=== PATIENT | male | born 1935 | race Caucasian/White ===

== ENCOUNTER → 2016-10-19 | Outpatient (CLI) | payer BC ==
[~2016-10-19] MED LIST: ASPCH81; ASPI81TA28 PO; ATOR10TA88 PO; CEPH500C PO; CRSUNK; CZRUNK; GLC500 PO; INSDGI SC; INSDGIPEN SC; LOSA1TAB PO; MULT-897 PO; TRIATAB3 PO
[2016-10-19 12:29] LABS: MEAN CORPUSCULAR HGB CONC 31.6 g/dl (32-36)
[2016-10-19 12:30] LABS: URINE APPEARANCE CLEAR (CLEAR); URINE BILIRUBIN NEG (NEG); URINE COLOR YELLOW; URINE NITRITE NEG (NEG); URINE SPECIFIC GRAVITY 1.018 (1.000-1.030); UROBILINOGEN NEG (NEG)
[2016-10-19 12:35] LABS: MANUAL MICROSCOPIC REQUIRED? NO; REVIEW REQ? NO
[2016-10-19 12:37] LABS: HEMATOCRIT 41.1 % (42-52); MEAN CELL VOLUME 92.6 fL (80-100); MEAN CORPUSCULAR HEMOGLOBIN 29.3 pg (25-34); RED BLOOD COUNT 4.44 M/uL (4.7-6.1); WHITE BLOOD COUNT 9.91 K/uL (4.8-10.8)
[2016-10-19 12:53] LABS: ESTIMATED AVERAGE GLUCOSE 140 mg/dl; HA1C FLAG Normal (Normal)
[2016-10-19 13:08] LABS: MEAN PLATELET VOLUME 13.5 fL (7.4-10.4); PLATELET COUNT 148 K/uL (130-400); PLT ESTIMATE DECREASED
[2016-10-19 13:22] LABS: ALT/SGPT 30 U/L (12-78); AST/SGOT 14 U/L (15-37); BLOOD UREA NITROGEN 29 mg/dl (7-18); CALCIUM 8.7 mg/dl (8.5-10.1); CARBON DIOXIDE 28 mmol/L (21-32); CHLORIDE 106 mmol/L (98-107); GLUCOSE 92 mg/dl (70-99); POTASSIUM 4.2 mmol/L (3.5-5.1); SODIUM 140 mmol/L (136-145)
[2016-10-19 13:24] LABS: CHOLESTEROL 119 mg/dl (0-200); CHOLESTEROL/HDL RATIO 3.4; HDL CHOLESTEROL 35 mg/dl; LDL CHOLESTEROL CALCULATED 45 mg/dl; PHOSPHORUS 2.8 mg/dl (2.5-4.9); TRIGLYCERIDES 196 mg/dl (0-150); VERY LOW DENSITY LIPOPROT CALC 39 mg/dl
[2016-10-19 14:04] LABS: URINE PROTIEN/CREAT RATIO 0.2 (0-0.2); URINE TOTAL PROTEIN 25.9 mg/dl (0-11.9)
== END | disposition home or self-care (01) ==
LOC: C.LABBFT 07:45
PROVIDERS: ATTEND Internal Medicine
DX: E78.5 Hyperlipidemia, unspecified (principal); I12.9 Hypertensive chronic kidney disease with stage 1 through stage 4 chronic kidney disease, or unspecified chronic kidney disease; N18.3 Chronic kidney disease, stage 3 (moderate); E11.22 Type 2 diabetes mellitus with diabetic chronic kidney disease; E55.9 Vitamin D deficiency, unspecified; R60.9 Edema, unspecified

== ENCOUNTER 2016-11-19 00:35 | Emergency (ER) | payer BC ==
[~2016-11-19] VITALS: Ht 175.3 cm; Wt 82.2 kg
[~2016-11-19 00:35] MED LIST changes: -ASPI81TA28 PO; -ATOR10TA88 PO; -INSDGIPEN SC; -LOSA1TAB PO; -MULT-897 PO; -TRIATAB3 PO
[2016-11-19 00:37] VITALS: TEMP 36.8; Ht 175.3 cm; Wt 82.2 kg
[2016-11-19] MEDS ORDERED: GELATIN SPONGE 12-7MM ONE (01:07)
--- NOTE | 2016-11-19 01:42 | EMERGENCY ROOM VISIT NOTE ---
History First contact with patient: 00:43 Chief Complaint: BLEEDING Stated Complaint: BLEEDING Nursing Triage Summary: Pt had biopsy to top of head today. Site started bleeding at 9pm tonight and pt unable to get it to stop. Pt takes ASA 81 mg daily. History of Present Illness The patient is a 81 year old male who presents to the Emergency Room with complaints of bleeding from a wound to the top of his head. The patient saw his mat worker today due to a lesion on the top of his head which has been present for several weeks. He states that they biopsied the lesion and applied Vaseline and a bandage. There was no bleeding at that time. The patient states that this evening, he noticed blood running down the back of his head and noted that the biopsy site was bleeding. He called the on-call provider from the dermatology office and they told him to apply Vaseline but he states this did not work. He takes a baby aspirin daily but denies any other blood thinners. Review of Systems A complete 10 point review of systems was reviewed with the patient with pertinent positives and negatives as per history of present illness. All else were negative. Social History Smoking Status: Current Some Day Smoker Current/Historical Medications Scheduled Aspirin (Aspirin Ec), 81 MG PO DAILY Atorvastatin (Lipitor), 10 MG PO DAILY Insulin Glargine (Lantus Solostar), 1-10 UNITS SC QPM Losartan Potassium (Cozaar), 1 TAB PO DAILY Multiple Vitamin (One Daily), 1 TAB PO DAILY Triamterene/Hctz (Triamterene/Hctz 37.5-25MG), 1 TAB PO DAILY Physical Exam Vital Signs Date Time Temp Pulse Resp B/P (MAP) Pulse Ox O2 Delivery O2 Flow Rate FiO2 11/19/16 01:46 77 16 148/80 98 11/19/16 00:37 36.8 73 16 162/84 97 Room Air Physical Exam VITALS: Vitals are noted on the nurse's note and reviewed by myself. Vital signs stable. GENERAL: This is a 81-year-old male, in no acute distress, nondiaphoretic, well- developed well-nourished. SKIN: There is a circular 1 cm biopsy site on the top of the patient's scalp with active oozing blood. NEURO: Patient was alert and oriented. Medical Decision & Procedures Medical Decision The patient was evaluated as above. He has continued bleeding from his biopsy site. Pressure was applied for greater than 10 minutes which significantly slow the bleeding. Gelfoam was then applied and a bandage over top. The patient was observed for greater than 10 minutes with no rebleeding. He will follow-up with his mat worker this week. He verbalized understanding of my assessment and treatment plan was discharged home in good condition. The patient was independently evaluated by Dr. Harper, ED attending physician, who agreed with my assessment and treatment plan. Medication Reconcilliation Current Medication List: was personally reviewed by me Blood Pressure Screening Patient's blood pressure: Elevated blood pressure Blood pressure disposition: Elevated BP felt to be situational Impression Primary Impression: Post-op bleeding Departure Information Dispostion Home / Self-Care Condition GOOD Referrals Pro,Santo Abrams M.D. (PCP) Patient Instructions My [facility] Additional Instructions Leave the GELFOAM and dressing in place for the next 48 hours. Keep the dressing clean and dry until time for removal. To remove the GELFOAM dressing, remove the overlying tape and then soak the wound in warm water until the piece of GELFOAM can be easily removed. Call your mat worker tomorrow to let him know you were in the emergency department. Return to the emergency department if your symptoms worsen despite treatment course outlined above. Problem Qualifiers Primary Impression: Post-op bleeding Surgical complication system/body Area: skin Procedure type: dermatologic Qualified Codes: L76.21 - Postprocedural hemorrhage of skin and subcutaneous tissue following a dermatologic procedure
[2016-11-19] MEDS ORDERED: TRIATAB3 PO (01:45)
[2016-11-19] MEDS ORDERED: MULT-897 PO (01:45)
[2016-11-19] MEDS ORDERED: ATOR10TA88 PO (01:45)
[2016-11-19 01:46] VITALS: BP 148/80; PULSE 77; O2SAT 98
[2016-11-19] MEDS ORDERED: ASPI81TA28 PO (01:46)
[2016-11-19] MEDS ORDERED: INSDGIPEN SC (01:46)
[2016-11-19] MEDS ORDERED: LOSA1TAB PO (01:47)
--- NOTE | 2016-11-19 02:51 | EMERGENCY ROOM VISIT NOTE ---
ED Visit Note First contact with patient: 00:43 I saw this patient in conjunction with Arline Carvalho PA-C. I agree with her decision making and treatment plan.
== END 2016-11-19 01:46 | disposition home or self-care (01) ==
LOC: C.EDB 00:36 → C.EDA 01:46
DX: L76.21 Postprocedural hemorrhage of skin and subcutaneous tissue following a dermatologic procedure (principal); F17.210 Nicotine dependence, cigarettes, uncomplicated; Z79.82 Long term (current) use of aspirin; Z79.899 Other long term (current) drug therapy

== ENCOUNTER → 2017-04-22 | Outpatient (CLI) | payer BC ==
[~2017-04-22] MED LIST changes: -ASPCH81; +ASPI81TA28 PO; +ATOR10TA82 PO; -CEPH500C PO; -CRSUNK; -CZRUNK; -GLC500 PO; -INSDGI SC; +INSDGIPEN SC; +LOSA1TAB PO; +MULT-897 PO; +TRIATAB3 PO
[2017-04-22 12:35] LABS: HEMATOCRIT 38.7 % (42-52); HEMOGLOBIN 12.6 g/dL (14.0-18.0); MEAN CORPUSCULAR HEMOGLOBIN 30.3 pg (25-34); MEAN CORPUSCULAR HGB CONC 32.6 g/dl (32-36); MEAN PLATELET VOLUME 13.3 fL (7.4-10.4); PLATELET COUNT 170 K/uL (130-400); RED CELL DISTRIBUTION WIDTH CV 14.1 % (11.5-14.5); RED CELL DISTRIBUTION WIDTH SD 47.5 fL (36.4-46.3); WHITE BLOOD COUNT 8.59 K/uL (4.8-10.8)
[2017-04-22 12:54] LABS: HEMOGLOBIN A1C 6.3 % (4.5-5.6)
[2017-04-22 13:39] LABS: ALBUMIN 3.6 gm/dl (3.4-5.0); BLOOD UREA NITROGEN 30 mg/dl (7-18); CALCIUM 8.6 mg/dl (8.5-10.1); CARBON DIOXIDE 26 mmol/L (21-32); GLUCOSE 103 mg/dl (70-99); POTASSIUM 4.1 mmol/L (3.5-5.1); SODIUM 136 mmol/L (136-145)
[2017-04-22 13:42] LABS: CHOLESTEROL 103 mg/dl (0-200); LDL CHOLESTEROL CALCULATED 33 mg/dl; PHOSPHORUS 3.1 mg/dl (2.5-4.9)
== END | disposition home or self-care (01) ==
LOC: C.LABBFT 07:46
PROVIDERS: ATTEND Internal Medicine Nephrology
DX: I12.9 Hypertensive chronic kidney disease with stage 1 through stage 4 chronic kidney disease, or unspecified chronic kidney disease (principal); N18.3 Chronic kidney disease, stage 3 (moderate); R60.9 Edema, unspecified; E55.9 Vitamin D deficiency, unspecified; E11.49 Type 2 diabetes mellitus with other diabetic neurological complication; E78.5 Hyperlipidemia, unspecified

== ENCOUNTER 2024-01-14 12:15 | Observation (INO) ==
[2024-01-14 12:46] LABS: iSTAT Creatinine 1.3 mg/dl (0.6-1.3); iSTAT Hemoglobin 11.9 g/dl (14.0-18.0); iSTAT Ionized Calcium 1.06 mmol/l (1.12-1.32); iSTAT Potassium 4.4 mmol/L (3.3-5.0)
[2024-01-14] MEDS: OPTIRAY 320 125ml IV ONE (12:59)
--- NOTE | 2024-01-14 13:07 | XRay Report ---
XR chest 1V portable CLINICAL HISTORY: neuro deficit, acute stroke suspected COMPARISON STUDY: No previous studies for comparison. FINDINGS: Lung volumes are normal. There is no consolidation. 9 mm right midlung nodular density is p resent. There is no pneumothorax or pleural effusion. Cardiac size is normal. Mediastinal contours ar e normal. There is no evidence for pulmonary edema. IMPRESSION: 1. No acute cardiopulmonary findings. 2. Possible 9 mm right lung nodule. Nonemergent chest CT is recommended. ACT 112: Negative or not required by law. Electronically signed by: Bonifacio Valero M.D. 01/14/2024 1:06 PM
--- NOTE | 2024-01-14 13:10 | CT Scan Report ---
CT head/brain wo con CLINICAL HISTORY: neuro deficit, acute stroke suspected Technique: Contiguous axial CT images of the head were acquired from the base of the skull to the amanda andre without intravenous contrast administration. Images were viewed in brain, subdural and [facility]. Automated dose lowering techniques and/or adjustment according to patient size were utilized for this exam. Comparison: Comparison is made to CT head 12/06/2020 Findings: The ventricles, basal cisterns, and cerebral sulci are normal. There is no acute intracranial hemorrh age or evidence of acute territorial infarction. Neither mass effect, shift of the midline structures , nor abnormal extra-axial fluid collections are shown. Imaged portions of the paranasal sinuses and mastoid air cells are clear. Right globe prosthesis is noted. There are no acute fractures of the calvaria or scalp swelling. Impression: No acute intracranial hemorrhage, no evidence of acute territorial infarction or other acute intracra nial disease process. ACT 112: Negative or not required by law. Electronically signed by: Prabhu Oneill M.D. 01/14/2024 1:09 PM
[2024-01-14] MEDS: SODIUM CHLORIDE 0.9% 1,000 ML IV SCH (13:14)
--- NOTE | 2024-01-14 13:16 | CT Scan Report ---
CTA ANGIOGRAPHY OF THE HEAD CLINICAL HISTORY: neuro deficit, acute stroke suspected COMPARISON STUDY: Head CT December 06, 2020. TECHNIQUE: Helical axial images of the head were obtained following uneventful intravenous administr ation of 118 cc of Optiray. Sagittal and coronal reconstructions were viewed as well as maximal inten sity projections on an independent 3-D workstation. Automated exposure control was utilized for the study. A dose lowering technique was utilized adhering to the principles of ALARA. FINDINGS: No acute intracranial hemorrhage is identified. Ventricular system is unremarkable. The bas al cisterns are patent. A left mastoidectomy is noted. These a right globe prosthesis. The bilateral M1, M2, A1 and A2 segments are patent. There is no intracranial aneurysm. No large vessel occlusion i s identified. The posterior circulation is intact. There is moderate plaque within the bilateral cave rnous carotids without significant stenosis. IMPRESSION: No large vessel occlusion. No intracranial aneurysm. ACT 112: Negative or not required by law. Electronically signed by: Bonifacio Valero M.D. 01/14/2024 1:15 PM
[2024-01-14 13:18] LABS: Basophils # (auto) 0.04 K/uL (0.00-0.20); Basophils % (auto) 0.4 %; Eosinophils # (auto) 0.23 K/uL (0.00-0.50); Eosinophils % (auto) 2.1 %; Hematocrit (blood only) 32.2 % (42.0-52.0); Hemoglobin 11.4 g/dl (14.0-18.0); Immature Granulocytes # (auto) 0.08 K/uL (0.01-0.20); Immature Granulocytes % (auto) 0.7 %; Lymphocytes # (auto) 1.73 K/uL (1.20-3.40); Lymphocytes % (auto) 15.8 %; Mean Corpuscular Hemoglobin 30.4 pg (25.0-34.0); Mean Corpuscular Hgb Conc 35.4 g/dL (32.0-36.0); Mean Corpuscular Volume 85.9 fL (80.0-100.0); Mean Platelet Volume 12.3 fL (9.4-12.4); Monocytes # (auto) 0.97 K/uL (0.11-0.59); Monocytes % (auto) 8.8 %; Neutrophils # (auto) 7.93 K/uL (1.40-6.50); Neutrophils % (auto) 72.2 %; Platelet Count 187 K/uL (130-400); RDW Coefficient of Variation 13.2 % (11.5-14.5); RDW Standard Deviation 41.1 fL (36.4-46.3); Red Blood Count 3.75 M/uL (4.70-6.10); White Blood Count 10.98 K/ul (4.8-10.8)
--- NOTE | 2024-01-14 13:19 | CT Scan Report ---
CT ANGIOGRAM OF THE NECK CLINICAL HISTORY: Neurological deficit. Stroke like symptoms. COMPARISON STUDY: No priors. TECHNIQUE: Following the IV administration of 118 of Optiray 320, CT angiogram of the neck was perfor med from the aortic arch to the skull base. Images are reviewed in the axial, sagittal, and coronal p lanes. 3-D MIPS images are created and assessed. IV contrast was administered without complication. A ll measurements were calculated based on NASCET criteria. A dose lowering technique was utilized adh ering to the principles of ALARA. FINDINGS: Thoracic aorta: There is atherosclerotic calcification of the thoracic aorta. 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 The remainder of the visualized Th oracic aorta are normal in caliber. The aortic arch demonstrates standard 3-vessel anatomy. Right carotid arterial system: The right common carotid artery is widely patent, as are the right int ernal and external carotid arteries. Calcified plaque is seen in the carotid bulb. Left carotid arterial system: The left common carotid artery is widely patent, as are the left [employer] al and external carotid arteries. Calcified plaque is seen in the carotid bulb. Vertebral arteries: Widely patent bilaterally noting mild left-sided dominance. Subclavian arteries: Widely patent bilaterally. Intracranial vasculature: The visualized intracranial vessels at the skull base are patent. Jugular veins: Patent bilaterally. Brain parenchyma: The visualized brain parenchyma the skull base is within normal limits. Lung apices: Partially visualized upper lobe lung parenchyma appears clear. Soft tissues: The visualized pharyngeal soft tissues are normal in appearance noting angiographic pha se technique. The oropharyngeal airway appears widely patent. The salivary and thyroid glands are nor mal in appearance. No cervical lymphadenopathy is seen. Skeletal structures: The skeletal structures are osteopenic. The visualized calvarium at the skull ba se appears intact. The imaged cervical spine is maintained noting multilevel spondylosis. Sinuses and mastoids: There is mild mucosal thickening within the maxillary antra. There is evidence of previous left mastoid surgery with a mastoid effusion. The right mastoid air cells are well pneuma tized. IMPRESSION: 1. Unremarkable CT angiogram of the neck. 2. 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 ACT 112: Negative or not required by law. Electronically signed by: Christiano Cassidy M.D. 01/14/2024 1:17 PM
[2024-01-14 13:22] LABS: Albumin Globulin Ratio 1.5 (0.9-2); Albumin Level 3.7 gm/dl (3.4-5.0); Bilirubin,Total 0.3 mg/dl (0.2-1.0); Calcium 8.3 mg/dl (8.6-10.3); Creatinine Clr Calc Pharmacy 44.5 ml/min; Est GFR (African American) 62.5 ml/min; Est GFR (Non-African American) 53.9 ml/min; Globulin 2.5 gm/dl (2.5-4.0); Magnesium 1.7 mg/dl (1.7-2.4); Total Protein 6.2 gm/dl (6.0-8.3)
[2024-01-14 13:24] LABS: Troponin I High Sensitivity 9.8 pg/ml (0-20)
[2024-01-14 13:25] LABS: INR 0.9 (0.9-1.1); Partial Thromboplastin Time 27 Seconds (21-31); Prothrombin Time 10.3 Seconds (9.0-12.0)
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
[2024-01-14 13:59] LABS: Appearance Urine Clear (Clear); Bacteria Urine Automated None Seen (None Seen); Bilirubin Urine Negative (Negative); Blood Urine Negative (Negative); Cast Urine Automated 0-2 /lpf (0-2); Color Urine Yellow; Epithelial Cell Urine Auto 0-2 /hpf (0-2); Glucose Urine UA Negative (Negative); Ketones Urine Negative (Negative); Leukocyte Esterase Urine Negative (Negative); Nitrite Urine Negative (Negative); Protein Urine Trace (Negative); RBC Urine Automated 0-2 /hpf (0-2); Specific Gravity Urine 1.016 (1.000-1.030); Urobilinogen Urine Negative (Negative); WBC Urine Automated 0-5 /hpf (0-5)
[2024-01-14] MEDS ORDERED: PHARMACIST DISCHARGE MED REC CONSULT PRN (14:33)
--- NOTE | 2024-01-14 15:42 | Emergency Department Note ---
Impression & Plan Hyponatremia, Stroke-like symptoms ED Provider Note NAME: BRAVO ALMAGUER AGE: 88 SEX: Male INFORMANT: Patient ED PROVIDER(S): Naeem King MD CHIEF COMPLAINT: Strokelike symptom PLAN: Disposition: Admitted Outpatient prescription management: none Referral: None MEDICAL DECISION MAKING: patient presented with strokelike symptoms. Time of onset was not known and the patient's symptoms had resolved in the ambulance. Stroke alert was not performed due to those factors. Patient was fully evaluated. He had no focal findings on examination. Patient underwent CT and CT angiography of the head and neck and there were no acute findings either. Blood work revealed an unremarkable CBC but profound hyponatremia. Patient admits to drinking some water but does not think he is overdoing it. Given the current situation further management in the hospital will be necessary. Consultation was made with Dr. Huseyin Mendoza of the [facility] service. Patient was evaluated in the ER for further management. Care/management discussed with: ED case caser up Level of care consideration(s): After review of the information above and other included data, I feel the patient requires escalation of care to admission Triage Nursing notes: reviewed and agree them. Vital Signs: reviewed and remarkable for no significant abnormalities Additional History obtained from: none Chronic Medical/Social Conditions affecting care: Aortic stenosis, diabetes, hyper Prior/ Outside/ External records reviewed: none Differential Diagnosis: CVA, TIA,Infection, dehydration, metabolic abnormality, hypo/hyperglycemia, electrolyte disturbance, anemia, hypoxia, cardiac sources, intracerebral event, toxicologic, neurologic, as well as other pathologies. Diagnostics, independently interpreted by me: ECG: Twelve-lead ECG reveals a sinus rhythm at 82 bpm with PAC. No ST elevation or depression Cardiac Monitoring: Cardiac monitoring ordered by me: The patient was placed on continuous cardiac monitoring and observed. It revealed a sinus rhythm at 83 bpm without evidence of dysrhythmia. Medical decision rules: none Imaging studies: Head CT: A noncontrast CT scan of the head was performed and was negative for tumor, fracture, intracranial hemorrhage, or other acute pathology. I refer you to the EMR for further details. HPI: 88 year old Male arrives for evaluation of strokelike symptoms. This started sometime after 11 PM last night and is currently resolved. Patient states that he tried to talk to his daughter today about 11:00 in the morning and was unable to get the words out. He stated he did not interact with anyone or speak prior to that time so he was unsure when the symptoms started. By time the ambulance got to him and loaded him for transport he had resolution of that issue.. The patient also notes the following associated symptoms, none. The patient has been given no medication for relieving factors. Current pain is rated as 0/10. Pt denies LOC, headache, fevers, chills, diaphoresis, visual changes, neck pain, chest pain, breathing difficulties, nausea, vomiting, abdominal pain, back pain, melena, hematochezia, urinary symptoms, numbness, weakness, lymphadenopathy, rash, or other complaints.. PAST MEDICAL HISTORY: See Below, hypertension, diabetes PAST SURGICAL HISTORY: See Below, SOCIAL HISTORY: See Below, retired HOME MEDICATIONS: See Below ALLERGIES: See Below VITALS: See Below PHYSICAL EXAMINATION: GENERAL: Awake, alert, [id number], in no distress HENT: Normocephalic, atraumatic. Oropharynx unremarkable. EYES: Normal conjunctiva. Sclera non-icteric. Left eye is equal and reactive. 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 NECK: Inspection normal. Non-tender. Supple. No nuchal rigidity. FROM. No masses. RESPIRATORY: Clear to auscultation. No wheezes. No rales. Normal respiratory effort. CARDIAC: Normal rate. Normal rhythm. No murmurs. No rubs. Extremities warm and well perfused. Pulses equal. No JVD. GI: Soft, non-distended. No tenderness to palpation. No rebound or guarding. No masses. RECTAL: Deferred. MUSCULOSKELETAL: Atraumatic. Chest examination reveals no tenderness. The back is symmetrical on inspection without obvious abnormality. There is no CVA tenderness to palpation. No joint edema. LOWER EXTREMITIES: Calves are equal size bilaterally and non-tender. No edema. No discoloration. NEURO: Normal sensorium. No sensory or motor deficits noted. Cranial nerves II through XII intact. Speech normal. No signs of aphasia. SKIN: No rash or jaundice noted. PROCEDURES: none CRITICAL CARE: none OBSERVATION NOTE: none Past Med/Surg History Problem List (Updated 01/14/24 @ 15:42 by Naeem King MD) Hyponatremia (Acute) Stroke-like symptoms (Acute) Diabetes mellitus with complication Anemia Vitamin D deficiency PAD (peripheral artery disease) Hypertension Hyperlipidemia Diabetic nephropathy Chronic kidney disease, stage 3 (moderate) Encounter for mastoidectomy cavity debridement Elevated PSA Prostate cancer (Chronic 02/27/21) Elevated TSH Abnormal CT of the abdomen Aortic stenosis Medical History Stage 1 skin ulcer of sacral region History of radiation therapy Melanoma Encounter for debridement of postmastoidectomy cavity Facial paresthesia Murmur Cerumen impaction Acute otitis media Carotid bruit Cataract DM (diabetes mellitus), type 2 with neurological complications Hearing loss Polyarthralgia Synovial cyst of popliteal space Tinea corporis Surgical History History of prostate biopsy (02/27/21) History of tonsillectomy and adenoidectomy History of sinus surgery (1963) History of cholecystectomy (1997) History of cataract extraction (2017) History of left mastoidectomy (1962) Family History Father No problems noted. Mother Diabetes Brother No problems noted. Sister No problems noted. Son No problems noted. Daughter No problems noted. Denies family history of Ovarian cancer Prostate cancer Coronary heart disease Kidney disease Myocardial infarction Breast cancer Colorectal cancer Social History Smoking Status: Current every day smoker Tobacco Type: Cigars packs per day: 2; Cigarettes Per Day: 1 cigar/day (since 1979); Second Hand Exposure: Yes (Mother and Father both smoked in home ); Do You Dip or Chew Tobacco: No; Hx Alcohol Use: No Hx Substance Use: No Preferred Language: Arabic Communication Ability: Effective Visual Impairment: Limited Hearing Ability: Use of Hearing Aid Developer Programmer Required: No Beliefs That Will Affect Care: None marital status: / Current Living Situation: Alone and Spouse current occupational status: retired 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, 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[place]) Feels Safe at Home: Yes Childhood Exposure to Second-Hand Smoke: Yes Diet: diabetic caffeine: No during the past year weight has: remained stable Dental Care, Regularly: Yes Physical Activity Frequency: Other Physical Activity Frequency Comment: chores around the house Seatbelt Use: always Allergies Allergies Allergy/AdvReac Type Severity Reaction Status Date / Time No Known Drug Allergies Allergy Verified 12/13/23 15:58 Home Meds Home Medications Medication Instructions Recorded Confirmed multivitamin 1 tab PO DAILY 02/27/19 01/14/24 vitamin E (dl, acetate) 90 mg (200 90 mg PO DAILY 11/19/21 01/14/24 unit) capsule Previous Rx's Medication Instructions Recorded insulin syr/ndl U100 half calvin 0.3 #100 ea 06/16/21 mL 31 gauge x 5/16" (BD Insulin Syringe Ultra-Fine (half unit)) triamterene 37.5 1 tab PO DAILY #90 tabs 02/12/23 mg-hydrochlorothiazide 25 mg tablet rosuvastatin 5 mg tablet 5 mg PO DAILY #90 tabs 03/24/23 telmisartan 40 mg-amlodipine 5 mg 1 tab PO DAILY #90 tabs 07/09/23 tablet blood sugar diagnostic (OneTouch #200 ea 08/04/23 Verio test strips) insulin glargine 100 unit/mL 15 unit (0.15 mL) subcut DAILY PRN 11/09/23 subcutaneous solution diabetes #10 mL Results & Data (ED) Vital Signs Vital Signs - 24 hr 01/14/24 12:34 01/14/24 12:34 01/14/24 12:34 Temperature 36.5 C 36.5 C Temperature Source Oral Oral Pulse Rate 81 Pulse Rate [Apical] 81 Pulse Rhythm Regular Pulse Rhythm [Apical] Regular Pulse Strength Normal Pulse Strength [Apical] Normal Respiratory Rate 20 20 Respiratory Effort / Characteristics Non-Labored Spontaneous Non-Labored Spontaneous Respiratory Depth Normal Normal Respiratory Pattern Regular Regular Blood Pressure 130/90 Blood Pressure [Right Arm] 130/90 Blood Pressure Mean 103 Blood Pressure Mean [Right Arm] 103 Blood Pressure Position Semi-fowlers Blood Pressure Position [Right Arm] Semi-fowlers Pulse Oximetry 96 96 96 Oxygen Delivery Method Room Air Room Air Room Air Sepsis Recent Fever Within 48 Hours No Sepsis New/Unexplained Change in Mental Status N/A Sepsis Action Taken by Nursing No Action Required 01/14/24 12:38 Temperature Temperature Source Pulse Rate 83 Pulse Rate [Apical] Pulse Rhythm Pulse Rhythm [Apical] Pulse Strength Pulse Strength [Apical] Respiratory Rate Respiratory Effort / Characteristics Respiratory Depth Respiratory Pattern Blood Pressure Blood Pressure [Right Arm] Blood Pressure Mean Blood Pressure Mean [Right Arm] Blood Pressure Position Blood Pressure Position [Right Arm] Pulse Oximetry Oxygen Delivery Method Sepsis Recent Fever Within 48 Hours Sepsis New/Unexplained Change in Mental Status Sepsis Action Taken by Nursing Laboratory Data 01/14/24 12:29 01/14/24 12:29 Lab Results 01/14/24 01/14/24 01/14/24 Range/Units 12:25 12:29 12:32 WBC 10.98 H (4.8-10.8) K/ul RBC 3.75 L (4.70-6.10) M/uL Hgb 11.4 L (14.0-18.0) g/dl POC Hgb 11.9 L (14.0-18.0) g/dl Hct 32.2 L (42.0-52.0) % POC Hct 35 L (42-52) % MCV 85.9 (80.0-100.0) fL MCH 30.4 (25.0-34.0) pg MCHC 35.4 (32.0-36.0) g/dL RDW Std Deviation 41.1 (36.4-46.3) fL RDW Coeff of Phillip 13.2 (11.5-14.5) % Plt Count 187 (130-400) K/uL MPV 12.3 (9.4-12.4) fL Immature Gran % (Auto) 0.7 % Neut % (Auto) 72.2 % Lymph % (Auto) 15.8 % [place] % (Auto) 8.8 % Eos % (Auto) 2.1 % Baso % (Auto) 0.4 % Neut # (Auto) 7.93 H (1.40-6.50) K/uL Lymph # (Auto) 1.73 (1.20-3.40) K/uL [place] # (Auto) 0.97 H (0.11-0.59) K/uL Eos # (Auto) 0.23 (0.00-0.50) K/uL Baso # (Auto) 0.04 (0.00-0.20) K/uL Immature Gran # (Auto) 0.08 (0.01-0.20) K/uL PT 10.3 (9.0-12.0) Seconds INR 0.9 (0.9-1.1) APTT 27 (21-31) Seconds PTT Ratio 1.0 POC Sodium 124 L (135-144) mmol/L Sodium 124 L (136-145) mmol/L POC Potassium 4.4 (3.3-5.0) mmol/L Potassium 4.0 (3.5-5.1) mmol/L POC Chloride 92 L (101-112) mmol/L Chloride 93 L (98-107) mmol/L Carbon Dioxide 24 (21-32) mmol/L POC Total CO2 23 L (24-31) mmol/L Anion Gap 7 (3-11) POC Anion Gap 15.0 L (16-25) mmol/L POC BUN 28 H (7-18) mg/dl BUN 23 (6-23) mg/dl Creatinine 1.21 (0.6-1.4) mg/dl POC Creatinine 1.3 (0.6-1.3) mg/dl Est Cr Clr Drug Dosing 44.5 ml/min Est GFR ( Amer) 62.5 ml/min Est GFR (Non-Af Amer) 53.9 ml/min BUN/Creatinine Ratio 19.0 (10-20) Glucose 174 H (70-99(Fasting)) mg/dl POC Glucose (other) 172 H (70-99) mg/dl Osmolality 272 L (280-300) mOsm/kg Calcium 8.3 L (8.6-10.3) mg/dl POC Ioniz Calcium Abdiaziz 1.06 L (1.12-1.32) mmol/l Magnesium 1.7 (1.7-2.4) mg/dl Total Bilirubin 0.3 (0.2-1.0) mg/dl AST 16 (13-39) U/L ALT 11 (7-52) U/L Alkaline Phosphatase 75 (34-104) U/L Troponin I High Sens 9.8 (0-20) pg/ml Total Protein 6.2 (6.0-8.3) gm/dl Albumin 3.7 (3.4-5.0) gm/dl Globulin 2.5 (2.5-4.0) gm/dl Albumin/Globulin Ratio 1.5 (0.9-2) Urine Color Yellow Urine Appearance Clear (Clear) Urine pH 7.0 (4.5-7.5) Ur Specific [place] 1.016 (1.000-1.030) Urine Protein Trace H (Negative) Urine Glucose (UA) Negative (Negative) Urine Ketones Negative (Negative) Urine Blood Negative (Negative) Urine Nitrite Negative (Negative) Urine Bilirubin Negative (Negative) Urine Urobilinogen Negative (Negative) Ur Leukocyte Esterase Negative (Negative) Urine WBC (Auto) 0-5 (0-5) /hpf Urine RBC (Auto) 0-2 (0-2) /hpf U Hyaline Cast (Auto) 0-2 (0-2) /lpf U Epithel Cells (Auto) 0-2 (0-2) /hpf Urine Bacteria (Auto) None Seen (None Seen) Urine Osmolality 249 L (500-800) mOsm/kg Ur Random Sodium 65 mmol/L Blood Type Antibody Screen 01/14/24 Range/Units 14:17 WBC (4.8-10.8) K/ul RBC (4.70-6.10) M/uL Hgb (14.0-18.0) g/dl POC Hgb (14.0-18.0) g/dl Hct (42.0-52.0) % POC Hct (42-52) % MCV (80.0-100.0) fL MCH (25.0-34.0) pg MCHC (32.0-36.0) g/dL RDW Std Deviation (36.4-46.3) fL RDW Coeff of Phillip (11.5-14.5) % Plt Count (130-400) K/uL MPV (9.4-12.4) fL Immature Gran % (Auto) % Neut % (Auto) % Lymph % (Auto) % [place] % (Auto) % Eos % (Auto) % Baso % (Auto) % Neut # (Auto) (1.40-6.50) K/uL Lymph # (Auto) (1.20-3.40) K/uL [place] # (Auto) (0.11-0.59) K/uL Eos # (Auto) (0.00-0.50) K/uL Baso # (Auto) (0.00-0.20) K/uL Immature Gran # (Auto) (0.01-0.20) K/uL PT (9.0-12.0) Seconds INR (0.9-1.1) APTT (21-31) Seconds PTT Ratio POC Sodium (135-144) mmol/L Sodium (136-145) mmol/L POC Potassium (3.3-5.0) mmol/L Potassium (3.5-5.1) mmol/L POC Chloride (101-112) mmol/L Chloride (98-107) mmol/L Carbon Dioxide (21-32) mmol/L POC Total CO2 (24-31) mmol/L Anion Gap (3-11) POC Anion Gap (16-25) mmol/L POC BUN (7-18) mg/dl BUN (6-23) mg/dl Creatinine (0.6-1.4) mg/dl POC Creatinine (0.6-1.3) mg/dl Est Cr Clr Drug Dosing ml/min Est GFR ( Amer) ml/min Est GFR (Non-Af Amer) ml/min BUN/Creatinine Ratio (10-20) Glucose (70-99(Fasting)) mg/dl POC Glucose (other) (70-99) mg/dl Osmolality (280-300) mOsm/kg Calcium (8.6-10.3) mg/dl POC Ioniz Calcium Abdiaziz (1.12-1.32) mmol/l Magnesium (1.7-2.4) mg/dl Total Bilirubin (0.2-1.0) mg/dl AST (13-39) U/L ALT (7-52) U/L Alkaline Phosphatase (34-104) U/L Troponin I High Sens (0-20) pg/ml Total Protein (6.0-8.3) gm/dl Albumin (3.4-5.0) gm/dl Globulin (2.5-4.0) gm/dl Albumin/Globulin Ratio (0.9-2) Urine Color Urine Appearance (Clear) Urine pH (4.5-7.5) Ur Specific [place] (1.000-1.030) Urine Protein (Negative) Urine Glucose (UA) (Negative) Urine Ketones (Negative) Urine Blood (Negative) Urine Nitrite (Negative) Urine Bilirubin (Negative) Urine Urobilinogen (Negative) Ur Leukocyte Esterase (Negative) Urine WBC (Auto) (0-5) /hpf Urine RBC (Auto) (0-2) /hpf U Hyaline Cast (Auto) (0-2) /lpf U Epithel Cells (Auto) (0-2) /hpf Urine Bacteria (Auto) (None Seen) Urine Osmolality (500-800) mOsm/kg Ur Random Sodium mmol/L Blood Type O Negative Antibody Screen NEGATIVE Administered Medications Sodium Chloride (Nss) 1,000 mls @ 50 mls/hr IV .Q20H SAE Stop: 02/13/24 12:29 Last Admin: 01/14/24 13:14 Dose: 50 mls/hr Documented By: CAW Discontinued Medications Ioversol (Optiray 320 125ml) 118 ml IV ONCE ONE Stop: 01/14/24 13:00 Last Admin: 01/14/24 12:59 Dose: 118 ml Documented By: KSF Imaging Data Radiologist's Impression: Chest X-Ray 01/14/24 12:27 XR chest 1V portable CLINICAL HISTORY: neuro deficit, acute stroke suspected COMPARISON STUDY: No previous studies for comparison. FINDINGS: Lung volumes are normal. There is no consolidation. 9 mm right midlung nodular density is present. There is no pneumothorax or pleural effusion. Cardiac size is normal. Mediastinal contours are normal. There is no evidence for pulmonary edema. IMPRESSION: 1. No acute cardiopulmonary findings. 2. Possible 9 mm right lung nodule. Nonemergent chest CT is recommended. ACT 112: Negative or not required by law. Electronically signed by: Bonifacio Valero M.D. 01/14/2024 1:[address] 01/14/24 12:27 CT head/brain wo con CLINICAL HISTORY: neuro deficit, acute stroke suspected Technique: Contiguous axial CT images of the head were acquired from the base of the skull to the vertex without intravenous contrast administration. Images were viewed in brain, subdural and bone windows. Automated dose lowering techniques and/or adjustment according to patient size were utilized for this exam. Comparison: Comparison is made to CT head 12/06/2020 Findings: The ventricles, basal cisterns, and cerebral sulci are normal. There is no acute intracranial hemorrhage or evidence of acute territorial infarction. Neither mass effect, shift of the midline structures, nor abnormal extra-axial fluid collections are shown. Imaged portions of the paranasal sinuses and mastoid air cells are clear. Right globe prosthesis is noted. There are no acute fractures of the calvaria or scalp swelling. Impression: No acute intracranial hemorrhage, no evidence of acute territorial infarction or other acute intracranial disease process. ACT 112: Negative or not required by law. Electronically signed by: Prabhu Oneill M.D. 01/14/2024 1:09 PM Head CTA 01/14/24 12:27 CTA ANGIOGRAPHY OF THE HEAD CLINICAL HISTORY: neuro deficit, acute stroke suspected COMPARISON STUDY: Head CT December 06, 2020. TECHNIQUE: Helical axial images of the head were obtained following uneventful intravenous administration of 118 cc of Optiray. Sagittal and coronal reconstructions were viewed as well as maximal intensity projections on an independent 3-D workstation. Automated exposure control was utilized for the study. A dose lowering technique was utilized adhering to the principles of ALARA. FINDINGS: No acute intracranial hemorrhage is identified. Ventricular system is unremarkable. The basal cisterns are patent. A left mastoidectomy is noted. These a right globe prosthesis. The bilateral M1, M2, A1 and A2 segments are patent. There is no intracranial aneurysm. No large vessel occlusion is identified. The posterior circulation is intact. There is moderate plaque within the bilateral cavernous carotids without significant stenosis. IMPRESSION: No large vessel occlusion. No intracranial aneurysm. ACT 112: Negative or not required by law. Electronically signed by: Bonifacio Valero M.D. 01/14/2024 1:15 PM Neck CTA 01/14/24 12:27 CT ANGIOGRAM OF THE NECK CLINICAL HISTORY: Neurological deficit. Stroke like symptoms. COMPARISON STUDY: No priors. TECHNIQUE: Following the IV administration of 118 of Optiray 320, CT angiogram of the neck was performed from the aortic arch to the skull base. Images are reviewed in the axial, sagittal, and coronal planes. 3-D MIPS images are created and assessed. IV contrast was administered without complication. All measurements were calculated based on NASCET criteria. A dose lowering technique was utilized adhering to the principles of ALARA. FINDINGS: Thoracic aorta: There is atherosclerotic calcification of the thoracic aorta. 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 The remainder of the visualized Thoracic aorta are normal in caliber. The aortic arch demonstrates standard 3-vessel anatomy. Right carotid arterial system: The right common carotid artery is widely patent, as are the right internal and external carotid arteries. Calcified plaque is seen in the carotid bulb. Left carotid arterial system: The left common carotid artery is widely patent, as are the left internal and external carotid arteries. Calcified plaque is seen in the carotid bulb. Vertebral arteries: Widely patent bilaterally noting mild left-sided dominance. Subclavian arteries: Widely patent bilaterally. Intracranial vasculature: The visualized intracranial vessels at the skull base are patent. Jugular veins: Patent bilaterally. Brain parenchyma: The visualized brain parenchyma the skull base is within normal limits. Lung apices: Partially visualized upper lobe lung parenchyma appears clear. Soft tissues: The visualized pharyngeal soft tissues are normal in appearance noting angiographic phase technique. The oropharyngeal airway appears widely patent. The salivary and thyroid glands are normal in appearance. No cervical lymphadenopathy is seen. Skeletal structures: The skeletal structures are osteopenic. The visualized calvarium at the skull base appears intact. The imaged cervical spine is maintained noting multilevel spondylosis. Sinuses and mastoids: There is mild mucosal thickening within the maxillary antra. There is evidence of previous left mastoid surgery with a mastoid effusion. The right mastoid air cells are well pneumatized. IMPRESSION: 1. Unremarkable CT angiogram of the neck. 2. 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 ACT 112: Negative or not required by law. Electronically signed by: Christiano Cassidy M.D. 01/14/2024 1:17 PM Discharge Plan Visit Data Chief Complaint: Stroke/CVA Symptoms ED Provider: Naeem King Discharge Problem: Hyponatremia, Stroke-like symptoms Forms Stand Alone Forms: My [facility] [employer] Prescriptions Prescriptions: No Action vitamin E (dl, acetate) 90 mg (200 unit) capsule 90 mg PO DAILY Rx Instructions: OTC (DME) BD Insulin Syringe (half unit) 0.3 mL 31 gauge x 5/16" syringe See Dose Instructions .ROUTE .MEDSUPPLY Qty: 100 3RF Dose Instruction: As directed Rx Instructions: Use to take insulin once a day triamterene-hydrochlorothiazid 37.5-25 mg tablet 1 tab PO DAILY Qty: 90 3RF Rx Instructions: 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
[2024-01-14] MEDS ORDERED: DEXTROSE 50% 50 ML SYRINGE IV PRN (17:10)
[2024-01-14] MEDS ORDERED: GLUCOSE 40% GEL 15 GM TUBE PO PRN (17:10)
[2024-01-14] MEDS ORDERED: ACETAMINOPHEN 325 MG TAB PO PRN (17:10)
[2024-01-14] MEDS ORDERED: GLUCOSE 10 TAB/TUBE PO PRN (17:10)
[2024-01-14] MEDS ORDERED: ONDANSETRON INJ 2 MG/ML 2 ML VIAL IV PRN (17:10)
[2024-01-14] MEDS ORDERED: CARBOHYDRATES FOR HYPOGLYCEMIA PO PRN (17:10)
[2024-01-14] MEDS ORDERED: GLUCAGON FOR INJ 1 MG VIAL SQ PRN (17:10)
[2024-01-14] MEDS: ASPIRIN 81 MG CHEW PO STA (17:18)
[2024-01-14 17:59] LABS: BUN Creatinine Ratio 18.1 (10-20); Calcium 8.5 mg/dl (8.6-10.3); Creatinine Clr Calc Pharmacy 42.7 ml/min; Est GFR (African American) 65.7 ml/min; Est GFR (Non-African American) 56.7 ml/min; Potassium 4.3 mmol/L (3.5-5.1)
[2024-01-14] MEDS: INSULIN ASPART PER UNIT CHARGE SC SCH (18:44)
--- NOTE | 2024-01-14 18:52 | XCELERA ---
[id number]
--- NOTE | 2024-01-14 19:10 | Magnetic Resonance Report ---
MR brain wo con CLINICAL HISTORY: Stroke-like symptoms, expressive aphasia TECHNIQUE: Multiplanar and multisequence MR images of the brain were obtained without intravenous con trast. Comparison: Comparison is made to CT head and neck 01/14/2024 FINDINGS: No abnormal restricted diffusion is identified. Faint apparent DWI signal in the white matter medial to the left temporal horn of the lateral ventricle is benign and may reflect chronic white matter yana nges with T2 shine through. Foci of T2 and FLAIR hyperintensity are noted in the paraventricular area s consistent with chronic small vessel ischemic disease. Ex vacuo ventriculomegaly and sulcal enlarge ment is noted compatible with diffuse volume loss. No mass is seen. There is no mass effect or midlin e shift. There is no evidence of acute intraparenchymal hemorrhage. No extra axial fluid collections are seen. The corpus callosum, pituitary gland, and cerebellar tonsils appear grossly unremarkable. Flow voids of the major intracranial arterial vessels are identified. The imaged portions of the para nasal sinuses, mastoid air cells, and orbits are unremarkable apart from right ocular prosthesis. IMPRESSION: Chronic volume loss and age related white matter changes without evidence of acute abnormality and in particular no evidence of acute infarct. ACT 112: Negative or not required by law. Electronically signed by: Prabhu Oneill M.D. 01/14/2024 7:08 PM
[2024-01-14] MEDS: ENOXAPARIN INJ 40 MG/0.4 ML SYR SQ SCH (21:04)
--- NOTE | 2024-01-14 23:04 | Electrocardiogram Report ---
Test Reason : Blood Pressure : */* mmHG Vent. Rate : 82 BPM Atrial Rate : 81 BPM P-R Int : * ms QRS Dur : 136 ms QT Int : 416 ms P-R-T Axes : * -3 40 degrees QTcB Int : 486 ms Sinus rhythm with occasional Premature atrial complexes Right bundle branch block Minimal voltage criteria for LVH, may be normal variant ( R in aVL ) Abnormal ECG When compared with ECG of 04-Sep-1994 10:59, Premature atrial complexes are now Present Right bundle branch block is now Present Confirmed by Anjum Canales ([id number]) on 01/14/2024 11:04:03 PM Referred By: REFERRED SELF Confirmed By: Anjum Canales
[2024-01-15 08:22] LABS: Basophils # (auto) 0.04 K/uL (0.00-0.20); Basophils % (auto) 0.4 %; Eosinophils % (auto) 2.2 %; Hematocrit (blood only) 32.3 % (42.0-52.0); Hemoglobin 10.8 g/dl (14.0-18.0); Immature Granulocytes # (auto) 0.03 K/uL (0.01-0.20); Immature Granulocytes % (auto) 0.3 %; Lymphocytes # (auto) 1.42 K/uL (1.20-3.40); Lymphocytes % (auto) 15.4 %; Mean Corpuscular Hemoglobin 29.1 pg (25.0-34.0); Mean Corpuscular Hgb Conc 33.4 g/dL (32.0-36.0); Mean Corpuscular Volume 87.1 fL (80.0-100.0); Mean Platelet Volume 12.7 fL (9.4-12.4); Monocytes # (auto) 0.95 K/uL (0.11-0.59); Monocytes % (auto) 10.3 %; Neutrophils # (auto) 6.57 K/uL (1.40-6.50); Neutrophils % (auto) 71.4 %; Platelet Count 171 K/uL (130-400); RDW Coefficient of Variation 13.2 % (11.5-14.5); Red Blood Count 3.71 M/uL (4.70-6.10); White Blood Count 9.21 K/ul (4.8-10.8)
[2024-01-15 08:30] LABS: BUN Creatinine Ratio 19.6 (10-20); Calcium 8.3 mg/dl (8.6-10.3); Chol HDL Ratio 3.5 (0-5); Creatinine Clr Calc Pharmacy 33.5 ml/min; Est GFR (Non-African American) 42.2 ml/min; Potassium 4.3 mmol/L (3.5-5.1)
[2024-01-15] MEDS: amLODIPine BESYLATE 5 MG TAB PO SCH (08:33)
[2024-01-15] MEDS: ROSUVASTATIN CALCIUM 5 MG TAB PO SCH (08:34)
[2024-01-15] MEDS: LOSARTAN POTASSIUM 50 MG TAB PO SCH (08:34)
[2024-01-15] MEDS: ASPIRIN 81 MG ECTAB PO SCH (08:34)
[2024-01-15] MEDS: LANTUS PER UNIT CHARGE SQ SCH (09:19)
[2024-01-15] MEDS: SODIUM CHLORIDE 0.9% 1,000 ML IV SCH (10:29)
--- NOTE | 2024-01-15 12:41 | Hospitalist Progress Note ---
Date of Service January 15, 2024 Assessment & Plan (1) Stroke-like symptoms: Plan: Acute - Presented w/ word finding difficulty and confusion while speaking to daughter on the phone around 1100 on 01/13, last known well evening of 01/12 - Per ED, symptoms resolved by EMS arrival (total symptoms <1h); ?TIA - CTH/CTA Head and Neck without acute findings; Brain MRI ordered, negative - Echocardiogram completed - moderate and AR, preserved EF 55-60% - Dysphagia screen passed, diet provided - ASA 324 mg p.o. x 1 given then started on maintenance ASA 81 mg daily this AM - PT/OT consult appreciated - Already on crestor 5mg daily, LDL at goal but TG still above goal at 185, consider adding fenofibrate (2) Hyponatremia: Plan: Acute - Na 124 on arrival - Patient reports that they recently doubled his BP medications 1-2mo ago - Triamterene/HCTZ held - SIADH labs somewhat suggestive of SIADH but also could be secondary to diuretic use, +hypochloremic - Mildly increased creat 1.48 and BUN 29 which is not c/w SIADH, high Na+ urine excretion of 65 which could be d/t diuretic use - Na improved to 127 on BMP this AM - Gently hydrate @ 80 ml/hr x 500cc then stop. Repeat BMP at 1800 - Consider NaCl tablets and fluid restriction pending BMP (3) Diabetes mellitus with complication: Plan: Chronic - Last A1c at 6.6% on 12/10/2023 - Glucose 172 on admission, reportedly takes Lantus 15u QAM PRN, but has not been using it lately; unclear why Lantus PRN - Continue Lantus 5u QAM while inpatient - SSI; with target BSG range 110-140mg/dL, CF 50, carb ratio 15 - BSG ACHS - Do not suspect he needs Lantus, he could be managed with oral medications (consider Januvia or an COATS upon d/c). (4) Hyperlipidemia: Plan: Chronic - Continue Crestor 5mg daily, TG still above goal at 185 - Consider adding fenofibrate, defer to pcp at discharge follow up (5) Hypertension: Plan: Chronic - Normotensive on arrival - BP slightly up this afternoon at 162/68 mmHg - Continues on amlodipinetelmisartan, which could be increased if needed. Will continue to follow BP closely. - Hold triamterene/HCTZ (as above) Plan Disposition: Continue stay, hopeful d/c home tomorrow. Await PT/OT eval and repeat BMP to ensure Na meets goal of 130. Full code T2DM diet VTE PPx: Lovenox 40mg SQ q24h Admission and Anticipated Discharge Date Admission Date: January 14, 2024 Supervising Physician Co-Signing Physician Notes Attending Attestation - Chart reviewed, care plan d/w CELSA Velasquez. I agree w/ the rodriguez components of her documentation with the following addition - * NADEEM -- admit Cr 1.2, now 1.68; baseline Cr ~1.2 Recommend repeat urine osm/urine Na either tonight or in am along with repeat BMP am. Hyponatremia may have contributed to his altered mental status/word-finding difficulties in addition to possible TIA. Shalom Muñoz was seen on daily rounds this morning. He is resting comfortably in bed, reports no further episodes of aphasia or dysarthria since yesterday morning. He denies slurred speech, focal weakness, numbness or tingling, chest pain, palpitations, or n/v/d. He is eating/drinking well. Voiding w/o issue and moving his bowels. He was hoping he could be discharged home today. His BP meds are on hold, specifically his HCTZ due to hyponatremia of 124 on admit. Review of Systems 2 Review of Systems: All systems reviewed and are unremarkable except as noted in HPI and below. Denies fever, chills, fatigue, headache, nasal congestion, sore throat, cough, chest pain, shortness of breath, palpitations, orthopnea, PND, abdominal pain, n/v/d, constipation, dysuria, hematuria, frequency, back pain, joint pain or swelling, easy bruising or bleeding, skin lesions or rashes. Physical Exam 2 Physical Exam: GENERAL: 88 yo Well-developed, well-nourished elderly M. NAD. LUNGS: Clear to auscultation bilaterally. No W/R/R. CARDIOVASCULAR: Regular rate and rhythm. ABDOMEN: Soft, non-tender and non-distended. BS normoactive x 4 quad. EXTREMITIES: No edema. Non-tender. Peripheral pulses +2/4. NEUROLOGIC: A&O x3. No focal neurological deficits. CN II-XII grossly intact. SKIN: Warm, dry, intact. No rashes or lesions. Results & Data Results & Data Vital Signs (Past 12 Hours) Vital Signs Temp Pulse Pulse Resp BP BP Pulse Ox 01/15/24 12:00 36.8 C 67 16 162/68 H 97 01/15/24 08:30 01/15/24 07:51 36.7 C 62 16 128/77 94 01/15/24 07:16 64 01/15/24 03:45 36.6 C 69 18 129/60 96 O2 Del Method 01/15/24 12:00 Room Air 01/15/24 08:30 Room Air 01/15/24 07:51 Room Air 01/15/24 07:16 01/15/24 03:45 Room Air Laboratory Results 01/15/24 06:46 01/15/24 06:46 PG Care Time/CCT Total # of Minutes Spent Total Time Spent with Patient: Total time spent is greater than 50% in coordination of care (as documented) at patient's floor/unit and/or counseling patient: 40 minutes Coding Level of Care Code 60543 SUB INP/OBS CARE 2/35MIN Diagnoses Stroke-like symptoms R29.90 Hyponatremia E87.1 Diabetes mellitus with complication E11.8 Mixed hyperlipidemia E78.2 Hyperlipidemia type: mixed hyperlipidemia Primary hypertension I10 Hypertension type: primary hypertension (4) Hyperlipidemia Hyperlipidemia type: mixed hyperlipidemia Qualified Code(s): E78.2 - Mixed hyperlipidemia (5) Hypertension Hypertension type: primary hypertension Qualified Code(s): I10 - Essential (primary) hypertension
[2024-01-15 17:36] LABS: BUN Creatinine Ratio 20.8 (10-20); Calcium 7.8 mg/dl (8.6-10.3); Creatinine Clr Calc Pharmacy 29.5 ml/min; Est GFR (Non-African American) 36.2 ml/min; Potassium 4.1 mmol/L (3.5-5.1)
[2024-01-15] MEDS: SODIUM CHLORIDE 1 GM TABLET PO SCH (21:11)
[2024-01-16 06:49] LABS: Basophils # (auto) 0.03 K/uL (0.00-0.20); Basophils % (auto) 0.4 %; Eosinophils # (auto) 0.29 K/uL (0.00-0.50); Eosinophils % (auto) 3.8 %; Hematocrit (blood only) 31.2 % (42.0-52.0); Hemoglobin 10.3 g/dl (14.0-18.0); Immature Granulocytes # (auto) 0.03 K/uL (0.01-0.20); Immature Granulocytes % (auto) 0.4 %; Lymphocytes # (auto) 1.73 K/uL (1.20-3.40); Lymphocytes % (auto) 22.6 %; Mean Corpuscular Hemoglobin 29.2 pg (25.0-34.0); Mean Corpuscular Volume 88.4 fL (80.0-100.0); Mean Platelet Volume 12.1 fL (9.4-12.4); Monocytes # (auto) 0.78 K/uL (0.11-0.59); Monocytes % (auto) 10.2 %; Neutrophils # (auto) 4.78 K/uL (1.40-6.50); Neutrophils % (auto) 62.6 %; Platelet Count 165 K/uL (130-400); RDW Coefficient of Variation 13.2 % (11.5-14.5); RDW Standard Deviation 42.7 fL (36.4-46.3); Red Blood Count 3.53 M/uL (4.70-6.10); White Blood Count 7.64 K/ul (4.8-10.8)
[2024-01-16 07:00] LABS: BUN Creatinine Ratio 25.2 (10-20); Calcium 8.4 mg/dl (8.6-10.3); Est GFR (African American) 46.3 ml/min; Est GFR (Non-African American) 39.9 ml/min; Potassium 4.5 mmol/L (3.5-5.1)
[2024-01-16 07:42] VITALS: RESP 18
[2024-01-16] MEDS ORDERED: STROKE PATIENT DISCHARGE STA (10:04)
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
[2024-01-16 11:55] VITALS: BP 147/70; PULSE 67; TEMP 98.1; O2SAT 98
--- NOTE | 2024-01-18 15:36 | Pharmacy Report ---
Pharmacist Stroke Counseling - Date of Service January 18, 2024 - Scope: Pharmacy has been consulted to provide medication discharge counseling for this patient admitted with transient ischemic attack as per the Pharmacist Discharge Counseling for Stroke Patients Protocol. - Medications on Discharge: Home Medications Medication Instructions Recorded Confirmed multivitamin 1 tab PO DAILY 02/27/19 01/18/24 vitamin E (dl, acetate) 90 mg (200 90 mg PO DAILY 11/19/21 01/18/24 unit) capsule Medication Instructions Recorded insulin syr/ndl U100 half calvin 0.3 #100 ea 06/16/21 mL 31 gauge x 5/16" (BD Insulin Syringe Ultra-Fine (half unit)) rosuvastatin 5 mg tablet 5 mg PO DAILY #90 tabs 03/24/23 blood sugar diagnostic (OneTouch #200 ea 08/04/23 Verio test strips) insulin glargine 100 unit/mL 15 unit (0.15 mL) subcut DAILY PRN 11/09/23 subcutaneous solution diabetes #10 mL aspirin 81 mg tablet,delayed 81 mg PO QAM #90 tabs 01/16/24 release telmisartan 40 mg-amlodipine 5 mg 1 tab PO DAILY #90 tabs 01/17/24 tablet - Action: The above medications, specifically ones for stroke treatment/prophylaxis, have been reviewed in detail with the patient and/or patient marketing sales representative(s) prior to discharge. This includes indication, common adverse reactions, drug interactions, and medication administration. Medication counseling has been employed using the teach-back method to ensure understanding. - Outcome: The patient and/or patient marketing sales representative(s) have demonstrated understanding of the medications. Additional comments: Did call patient over the phone to discuss medication changes on discharge. He reports receiving baby aspirin from pharmacy. He reports however, the cost was really high (~$30). I told him that is really high for the yung and that he could call his pharmacy to see if maybe he was charged incorrectly. I also recommended that he could purchase this agent OTC and that it is typically pretty inexpensive. Patient reports continuation of previous medications. He reports continuing Lantus prn. He is not able to tell me dose but reports he adjusts dose based upon BSG value per provider directions. Patient expresses some concerns with seeing insulin dose when drawing up medication recently. He lives by himself so does not have anyone to help him with this. I advised him to reach out to Dr. Campbell (PCP) to discuss alternative agents. We discussed that insulin is a high risk medication and that he needs to be precise when drawing up doses. Patient agreed and said he would call Dr. Campbell's office. I did send communication to Dr. Campbell to relay this conversation regarding insulin to make sure their office is aware and to ensure necessary follow up. Dr. Campbell did respond to my message and reported their office will reach out to patient to see if they can set up other support, etc. No other questions/concerns from patient. He will seek necessary follow up with his provider. Thank you for allowing pharmacy to be involved in the care of this patient. Please call [phone] with any additional questions
== END 2024-01-16 14:23 | disposition home or self-care (01) ==
LOC: ED 12:15 → 2N 12:15 → SUATTDRO 14:25 → 2N 15:53